=== PATIENT | female | born 1970 | race Caucasian/White ===

== ENCOUNTER 2017-03-27 20:08 | Emergency (ER) | payer BC ==
[~2017-03-27] VITALS: Ht 162.6 cm; Wt 77.1 kg
[2017-03-27] MEDS ORDERED: SITA1TAB6 PO (20:53)
[2017-03-27] MEDS ORDERED: AMLO5TAB4 PO (20:53)
[2017-03-27] MEDS ORDERED: [UNRECOGNIZED DRUG - OTHER] PO (20:53)
--- NOTE | 2017-03-27 21:30 | NUR ---
PT c/o "chest pain" when she coughs. VSS. Put on monitor/pulse ox per order. No acute signs of distress. Will continue to monitor.
[2017-03-27 21:49] LABS: BASOPHILS % (AUTO) 0.2 % (0.0-2.0); HEMOGLOBIN 8.7 g/dL (10.9-14.3); LYMPHOCYTES # (AUTO) 2.7 K/uL (20.0-40.0); MEAN CORPUSCULAR HEMOGLOBIN 17.9 uug (24.7-32.8); MONOCYTES # (AUTO) 0.6 K/uL (2.0-10.0); NEUTROPHILS # (AUTO) 7.6 K/uL (1.8-8.9)
[2017-03-27 21:55] LABS: EOSINOPHILS # (AUTO) 0.3 K/uL (0.0-0.7); EOSINOPHILS % (AUTO) 2.3 % (0.0-7.0); HEMATOCRIT 29.3 % (31.2-41.9); LYMPHOCYTES % (AUTO) 24.4 % (20.5-51.5); MEAN CORPUSCULAR HGB CONC 30 g/dL (32.3-35.6); MEAN CORPUSCULAR VOLUME 59.9 fL (75.5-95.3); MONOCYTES % (AUTO) 5.3 % (0.0-11.0); NEUTROPHILS % (AUTO) 67.8 % (38.5-71.5); PLATELET COUNT (AUTO) 428 K/uL (179-408); WHITE BLOOD COUNT (AUTO) 11.3 K/uL (3.8-11.8)
[2017-03-27 22:24] LABS: BAND % (MANUAL) 3 % (0-10); EOSINOPHILS % (MANUAL) 1 % (0-8); LYMPHOCYTES % (MANUAL) 26 % (20-40); MONOCYTES % (MANUAL) 4 % (2-10); NEUTROPHILS % (MANUAL) 66 % (42-75)
[2017-03-27 22:55] LABS: *URINE HCG, QUAL NEGATIVE (NEGATIVE)
[2017-03-27] MEDS ORDERED: KETOROLAC TROMETHAMINE 30 MG INJ IVP ONE (23:00)
[2017-03-27 23:07] LABS: *AMPHETAMINE, URINE NEGATIVE (NEGATIVE); *BARBITURATE, URINE NEGATIVE (NEGATIVE); *CANNABINOID, URINE NEGATIVE (NEGATIVE); *COCCAINE, URINE NEGATIVE (NEGATIVE); *OPIATE, URINE NEGATIVE (NEGATIVE); *PHENCYCLIDINE SCREEN,URINE NEGATIVE (NEGATIVE)
[2017-03-27] MEDS ORDERED: KETOROLAC TROMETHAMINE 30 MG INJ ONE (23:22)
--- NOTE | 2017-03-28 00:06 | NUR ---
PT's left contact info: Walter Bejarano
--- NOTE | 2017-03-28 00:32 | NUR ---
lab at bedside for repeat troponin
[2017-03-28] MEDS ORDERED: IV NORMAL SALINE 1000 ML BAG IV ONE (01:15)
--- NOTE | 2017-03-28 02:19 | NUR ---
Patient discharged to home in stable conditon. Written and verbal after care instructions given. Patient verbalizes understanding of instructions. IV removed, catheter intact. No bleeding noted at site. VSS. Ambulated from ER w/ steady gait.
[2017-03-28 02:20] VITALS: BP 120/80
== END 2017-03-28 02:22 | disposition home or self-care (01) ==
LOC: ER 20:08
DX: R07.9 Chest pain, unspecified (principal); J40 Bronchitis, not specified as acute or chronic; E11.65 Type 2 diabetes mellitus with hyperglycemia; F17.200 Nicotine dependence, unspecified, uncomplicated; D64.9 Anemia, unspecified; I10 Essential (primary) hypertension; Z88.0 Allergy status to penicillin; Z88.5 Allergy status to narcotic agent
CPT/HCPCS: 36415; 70030-TC; 71045; 80307; 84703; 85025; 85730; 93005; A4663; J1885; J7030